=== PATIENT | female | born 1960 | race African-American/Black ===

== ENCOUNTER 2018-07-04 08:55 | Day surgery (SDC) | payer OTHER | END 2018-07-04 14:35 | disposition home or self-care (01) | LOC: GIL 08:55 | DX: D12.6 Benign neoplasm of colon, unspecified (principal); K64.8 Other hemorrhoids; I10 Essential (primary) hypertension; E11.9 Type 2 diabetes mellitus without complications | CPT/HCPCS: 45385; 82962; 88305 ==